=== PATIENT | female | born 1980 | race Caucasian/White ===

== ENCOUNTER → 2018-04-24 | Outpatient (CLI) | payer BC ==
[~2018-04-24] MED LIST: HYDROCHLOROTH12.5 MG; HYDROCHLOROTHIA25 MG PO; LOSARTAN POTASS25 MG
--- NOTE | 2018-04-24 13:58 | Diagnostic Imaging Report ---
Exam: Brain MRI without IV contrast History: Headache, visual changes, leg numbness. Comparison studies: Head CT 08/16/2016 Technique: Sagittal and axial T2 FS, axial DWI, axial T2*GRE, axial T1 FLAIR and axial coronal T2 FLAIR. Intravenous contrast: None Findings: Scalp: Normal in signal. No masses. Bone marrow: Normal in signal intensity. Brain sulci: Appropriate for age. Ventricles: Normal in size. No hydrocephalus. Extra axial spaces: No mass, no fluid collection. Parenchyma: No abnormal signal intensities. No masses, hemorrhage, or acute or chronic ischemic insult. Suprasellar region: No abnormalities. Craniocervical junction: Patent foramen magnum. No Chiari malformation. Vessels: Normal flow-voids in the arteries and sinuses. IMPRESSION: No intracranial abnormalities. Signed by: Dr. William Subramanian M.D. on 04/24/2018 1:55 PM
== END ==
LOC: MRI 12:39
PROVIDERS: ATTEND Family Medicine
DX: R51 Headache (principal); H53.9 Unspecified visual disturbance; R20.0 Anesthesia of skin
CPT/HCPCS: 70551

== ENCOUNTER → 2019-02-12 | Outpatient (CLI) | payer BC ==
--- NOTE | 2019-02-12 14:50 | Diagnostic Imaging Report ---
Limited soft tissue ultrasound of the right neck History: Palpable right neck lump. Comparison: None. Technique/findings: Limited ultrasound was performed of the right neck in the area of clinical concern. There is no sonographic evidence of mass or other abnormality in the right neck in the area of clinical concern. IMPRESSION: No sonographic correlate to the palpable lump in the right neck. Signed by: Dr. Myles Santos MD on 02/12/2019 2:46 PM
== END ==
LOC: US 12:00
PROVIDERS: ATTEND Family Medicine
DX: M79.9 Soft tissue disorder, unspecified (principal)
CPT/HCPCS: 76536